=== PATIENT | female | born 1940 | race Caucasian/White ===

== ENCOUNTER → 2016-05-26 | Outpatient (CLI) | payer MEDICARE | LOC: BFHH 11:57 | PROVIDERS: ATTEND Family Medicine | DX: D64.9 Anemia, unspecified (principal) ==

== ENCOUNTER → 2016-06-24 | Outpatient (CLI) | payer MEDICARE | LOC: BFHH 10:17 | PROVIDERS: ATTEND Family Medicine | DX: J44.9 Chronic obstructive pulmonary disease, unspecified (principal); I10 Essential (primary) hypertension; M06.4 Inflammatory polyarthropathy; M35.3 Polymyalgia rheumatica ==

== ENCOUNTER → 2017-05-26 | Outpatient (CLI) | payer MEDICARE | END | disposition home or self-care (01) | LOC: LAB.O 17:15 | PROVIDERS: ATTEND Internal Medicine | DX: M05.79 Rheumatoid arthritis with rheumatoid factor of multiple sites without organ or systems involvement (principal) ==

== ENCOUNTER 2017-07-25 11:30 | Emergency (ER) | payer MEDICARE ==
[2017-07-25 11:50] VITALS: TEMP 97.2
[2017-07-25] MEDS ORDERED: MORPHINE SULFATE INJ 10 MG/ML VIAL IM ONE (12:28)
--- NOTE | 2017-07-25 12:29 | ED.PDOC ---
History of Present Illness - General Chief Complaint: Upper Extremity Injury Stated Complaint: right shouler pain Time Seen by Provider: 07/25/17 12:26 Source: patient Exam Limitations: no limitations - History of Present Illness Occurred: just prior to arrival Severity: moderate Pain Location: upper extremity Method of Injury: fall Improving Factors: immobilization Worsening Factors: movement Loss of Consciousness: no loss of consciousness Associated Symptoms (Fall): denies symptoms Allergies/Adverse Reactions: Allergies NO KNOWN ALLERGY Allergy (Verified 05/11/16 22:33) Home Medications: Ambulatory Orders Citalopram Hydrobromide 20 mg PO BEDTIME 09/25/14 Hydrochlorothiazide 12.5 mg PO DAILY 09/25/14 Lorazepam 0.5 mg PO BID 09/25/14 Montelukast Sodium 10 mg PO BEDTIME 09/25/14 Ferrous Sulfate [Iron] 325 mg PO BID 05/11/16 Linaclotide [Linzess] 90 mcg PO DAILY 05/11/16 Metoclopramide HCl 10 mg PO BEDTIME 05/11/16 Oxybutynin Chloride 5 mg PO BID 05/11/16 Pantoprazole Sodium 40 mg PO BID 05/11/16 Prednisone 1 mg PO DAILY 05/11/16 Tramadol HCl 50 mg PO PRN 05/11/16 Acetaminophen W/ Codeine [Tylenol W/ CODEINE #3] 1 ea PO Q4HR PRN #20 07/25/17 Golimumab [Simponi] 50 mg SC .[id number] 07/25/17 Hydroxychloroquine Sulfate [Hydroxychloroquine Sulfat] 200 mg PO BID 07/25/17 Methotrexate Sodium [Methotrexate] 20 mg PO WKLY 07/25/17 Umeclidinium-Vilanterol [Anoro Ellipta 62.5-25 Mcg/INH] 1 aer IN DAILY 07/25/17 diphenhydrAMINE HCL [Benadryl] 25 mg PO PRN 07/25/17 Review of Systems - Review of Systems Constitutional: States: no symptoms reported EENTM: States: no symptoms reported Respiratory: States: no symptoms reported Cardiology: States: no symptoms reported Gastrointestinal/Abdominal: States: no symptoms reported Genitourinary: States: no symptoms reported Musculoskeletal: States: joint pain, joint swelling. Denies: neck pain Skin: States: no symptoms reported Neurological: States: no symptoms reported. Denies: anxiety, headache, numbness , paresthesia, tingling, tremors, weakness Endocrine: States: no symptoms reported Past Medical History (General) - Patient Medical History Hx Stroke: No Hx Asthma: No Hx of COPD: Yes Hx Congestive Heart Failure: No Hx Hypertension: Yes Hx Thyroid Disease: No Hx Diabetes: No Hx Cancer: Yes - tongue Hx Hepatitis C: No - Vaccination History Hx Tetanus, Diphtheria Vaccination: No Hx Influenza Vaccination: Yes Hx Pneumococcal Vaccination: Yes - Social History Hx Tobacco Use: Yes Hx Alcohol Use: No Hx Substance Use: No Hx Substance Use Treatment: No Hx Depression: No Family Medical History - Family History Mother Family History: No Known Hx Family Cancer: Yes - liver,lung,prostate Physical Exam - Physical Exam General Appearance: Alert, Well Developed, Well Groomed, Well Hydrated, Well Nourished Head Injury: no evidence of injury ENT Exam: hearing grossly normal, no evidence of ENT injury Neck Exam: non-tender, full range of motion, normal alignment, normal inspection Cardiovascular/Respiratory: regular rate, rhythm, no M/R/G, normal peripheral pulses, no JVD, normal breath sounds, no respiratory distress Gastrointestinal/Abdominal: normal bowel sounds, non tender, soft, no organomegaly, no pulsatile mass Back Exam: normal inspection, no vertebral tenderness Extremity Exam: pain with movement, tenderness, other - tenderness to the right shoulder, no pain to the pelvis, chest, abd, skull, neck, lower arm or left arm Progress - Progress Progress: 07/25/17 12:31 07/25/17 11:51 Humerus,Right [RAD] Stat Shoulder,Right 2 or More Views [RAD] Stat 07/25/17 12:07 Chest,1 View [RAD] Stat 07/25/17 13:00 chest xray shows no acute traumatic chest abnormality, right humerus fracture; right shoulder xray shows comminuted right shoulder fracture with some displacement but no dislocation Departure - Departure Clinical Impression: Humeral fracture Qualifiers: Encounter type: initial encounter Humerus Location: proximal Fracture type: closed Fracture morphology: unspecified fracture morphology Laterality: right Qualified Code(s): S42.201A - Unspecified fracture of upper end of right humerus , initial encounter for closed fracture Fall Qualifiers: Encounter type: initial encounter Qualified Code(s): W19.XXXA - Unspecified fall, initial encounter Time of Disposition: 01:05 Disposition: Discharge to Home or Self Care Condition: Good Departure Forms: ED Discharge - Pt. Copy, Patient Portal Self Enrollment Instructions: DI for Arm Pain, DI for Humeral Fracture Diet: resume usual diet Activity: increase activity as tolerated Referrals: Last Orantes MD [Primary Care Provider] - 1-2 Weeks Hermann Springer MD [Active Staff] - 1-5 Days (proximal humerus fracture) Prescriptions: Acetaminophen W/ Codeine [Tylenol W/ CODEINE #3] 1 ea PO Q4HR PRN #20 PRN Reason: Pain Home Medications: Ambulatory Orders Citalopram Hydrobromide 20 mg PO BEDTIME 09/25/14 Hydrochlorothiazide 12.5 mg PO DAILY 09/25/14 Lorazepam 0.5 mg PO BID 09/25/14 Montelukast Sodium 10 mg PO BEDTIME 09/25/14 Ferrous Sulfate [Iron] 325 mg PO BID 05/11/16 Linaclotide [Linzess] 90 mcg PO DAILY 05/11/16 Metoclopramide HCl 10 mg PO BEDTIME 05/11/16 Oxybutynin Chloride 5 mg PO BID 05/11/16 Pantoprazole Sodium 40 mg PO BID 05/11/16 Prednisone 1 mg PO DAILY 05/11/16 Tramadol HCl 50 mg PO PRN 05/11/16 Acetaminophen W/ Codeine [Tylenol W/ CODEINE #3] 1 ea PO Q4HR PRN #20 07/25/17 Golimumab [Simponi] 50 mg SC .[id number] 07/25/17 Hydroxychloroquine Sulfate [Hydroxychloroquine Sulfat] 200 mg PO BID 07/25/17 Methotrexate Sodium [Methotrexate] 20 mg PO WKLY 07/25/17 Umeclidinium-Vilanterol [Anoro Ellipta 62.5-25 Mcg/INH] 1 aer IN DAILY 07/25/17 diphenhydrAMINE HCL [Benadryl] 25 mg PO PRN 07/25/17
--- NOTE | 2017-07-25 12:52 | RAD ---
EXAM DESCRIPTION: Chest,1 View CLINICAL HISTORY: pain after falling COMPARISON: None available TECHNIQUE: AP portable chest FINDINGS: An anterior cervical fusion plate is observed. An orthopedic anchors observed in the right shoulder. There is fracturing of the right proximal humerus. A right-sided acromial spur is observed. Subacromial spur is also observed in the left. Lungs are free of acute infiltrate. The heart is within range of normal. No pleural fluid is seen. IMPRESSION: Fracture of the right proximal humerus is observed. The lungs are clear. Electronically signed by: Shiv Toussaint MD 07/25/2017 12:51 PM CDT
--- NOTE | 2017-07-25 12:52 | RAD ---
EXAM DESCRIPTION: Shoulder,Right 2 or More Views CLINICAL HISTORY: pain after falling COMPARISON: None. IMPRESSION: 2 views of the right shoulder show a comminuted displaced fracture involving the right humeral head with 2 cm medial displacement of the distal fracture fragment/humeral shaft. Surgical tack in the fracture humeral head is noted from probable prior surgery. No glenohumeral joint dislocation is seen. Question postsurgical changes to the right AC joint. Plate and screw fixation of the lower cervical spine is seen. Osseous structures are diffusely osteopenic. Electronically signed by: Dionicio Sam MD 07/25/2017 12:51 PM CDT
[2017-07-25] MEDS ORDERED: NEOMYCIN-BACITRACIN-POLYMYXIN 0.9 GM UD TOP ONE (13:57)
[2017-07-25] MEDS ORDERED: POVIDONE IODINE 10 % 15 ML UD TOP ONE (13:57)
[2017-07-25 14:18] VITALS: BP 128/77; O2SAT 93
== END 2017-07-25 14:19 | disposition home or self-care (01) ==
LOC: ER 11:30
DX: S42.291A Other displaced fracture of upper end of right humerus, initial encounter for closed fracture (principal); J44.9 Chronic obstructive pulmonary disease, unspecified; I10 Essential (primary) hypertension; Z79.899 Other long term (current) drug therapy; W19.XXXA Unspecified fall, initial encounter; Y92.9 Unspecified place or not applicable
CPT/HCPCS: 71045; 73030; J2270

== ENCOUNTER → 2017-07-31 | Outpatient (CLI) | payer MEDICARE ==
--- NOTE | 2017-07-31 16:24 | RAD ---
EXAM DESCRIPTION: Shoulder,Right 2 or More Views CLINICAL HISTORY: PAIN COMPARISON: None Available. TECHNIQUE: 3 views of the right shoulder. FINDINGS: Transversely oriented fracture of the surgical neck of the proximal humerus is seen. There is mild to moderate comminution. The greater tuberosity is fractured and may be a separate fragment. On the previous study, there was approximately 9 mm of medial displacement of the major distal fracture fragment. On the present study there is approximately 1.4 cm of medial displacement. The degree of impaction may be increased slightly. The medial aspect of the humeral head appears to articulate with the glenoid fossa. The distal fracture fragment which includes the shaft of the humerus is closely adjacent to the inferior margin of the glenoid. Intact acromioclavicular joint. No scapular fracture. IMPRESSION: Proximal right humeral fracture with increased degree of displacement at the fracture site. See above. Electronically signed by: Munir Martinez MD 07/31/2017 4:23 PM CDT
== END ==
LOC: RAD 09:17
PROVIDERS: ATTEND Orthopaedic Surgery
DX: S42.291A Other displaced fracture of upper end of right humerus, initial encounter for closed fracture (principal)

== ENCOUNTER → 2017-08-07 | Outpatient (CLI) | payer MEDICARE | LOC: GMAJ 10:48 | PROVIDERS: ATTEND Physician Assistant | DX: Z01.810 Encounter for preprocedural cardiovascular examination (principal) ==

== ENCOUNTER → 2017-08-24 | Outpatient (CLI) | payer MEDICARE ==
--- NOTE | 2017-08-24 15:33 | RAD ---
EXAM DESCRIPTION: Shoulder,Right 2 or More Views CLINICAL HISTORY: PAIN IN RIGHT SHOULDER COMPARISON: None Available. TECHNIQUE: 3 views of the right shoulder. FINDINGS: There is adequate internal and external rotation. Transscapular Y view shows normal prosthetic component alignment. Previous study showed proximal humeral fracture and the present exam shows reverse right shoulder arthroplasty with expected alignment of the glenoid and humeral components. Some of the fracture fragments of the proximal humerus are still seen superolaterally. A wire surrounds the proximal humerus and humeral stem of the humeral component of the prosthesis. Plate and screws are seen in the C-spine. Wide right AC joint. Inferior acromial spur appears less prominent. IMPRESSION: Reverse right shoulder arthroplasty with expected alignment. Electronically signed by: Munir Martinez MD 08/24/2017 3:31 PM CDT
== END ==
LOC: RAD 09:56
PROVIDERS: ATTEND Orthopaedic Surgery
DX: M25.511 Pain in right shoulder (principal); Z96.611 Presence of right artificial shoulder joint

== ENCOUNTER → 2017-10-18 | Outpatient (CLI) | payer MEDICARE ==
--- NOTE | 2017-10-18 12:45 | CT ---
EXAM DESCRIPTION: Abdomen/Pelvis w/wo Contrast CLINICAL HISTORY: 77 years Female, ABD PAIN COMPARISON: None available. TECHNIQUE: Contiguous 3 mm axial images were obtained from the lung bases to the level of the proximal femora before and after the administration of intravenous and oral contrast. Sagittal and coronal reconstructions were reviewed. FINDINGS: THORAX: The imaged lower thorax demonstrates no gross abnormality. LIVER: The liver demonstrates a nodular contour, consistent with cirrhosis. No intrahepatic ductal dilatation or focal masses. GALLBLADDER: Surgically absent PANCREAS: Diffuse atrophy of the pancreas is noted. SPLEEN: Normal ADRENAL GLANDS: Normal with no nodules or masses. KIDNEYS: Both kidneys enhance symmetrically with no hydronephrosis or nephrolithiasis or perinephric fluid collections. No focal masses are identified. The visualized ureters appear grossly unremarkable. STOMACH: Moderate sized hiatal hernia is noted. The intra-abdominal portion of the stomach is not well-distended limiting evaluation. SMALL BOWEL: The small bowel loops demonstrate variable degrees of distention with no abnormal dilatation or other signs to suggest bowel obstruction. LARGE BOWEL: Large amount of fecal material throughout the colon suggesting constipation. No evidence of free intraperitoneal air or fluid. RETROPERITONEUM: The abdominal aorta is nonaneurysmal with moderate atherosclerosis. The inferior vena cava is normal in size and caliber. No abnormally enlarged retroperitoneal lymph nodes are identified. URINARY BLADDER:The urinary bladder is well-distended with no gross abnormality. The uterus and ovaries are surgically absent. ADDITIONAL FINDINGS: None. BONES: Mild degenerative changes are identified in the visualized bones.No evidence of osteophytic or osteoblastic lesions. IMPRESSION: 1. Cirrhotic liver. 2. Constipation. 3. Moderate-sized hiatal hernia. This exam was performed according to our departmental dose-optimization program, which includes automated exposure control, adjustment of the mA and/or kV according to patient size and/or use of iterative reconstruction technique. Electronically signed by: Gita Olivier MD 10/18/2017 12:43 PM CDT
== END ==
LOC: LAB.O 07:57
PROVIDERS: ATTEND Family Medicine
DX: R10.84 Generalized abdominal pain (principal); K74.60 Unspecified cirrhosis of liver; K59.00 Constipation, unspecified; K44.9 Diaphragmatic hernia without obstruction or gangrene; I10 Essential (primary) hypertension

== ENCOUNTER → 2017-11-03 | Outpatient (CLI) | payer MEDICARE ==
--- NOTE | 2017-11-03 18:09 | RAD ---
EXAM DESCRIPTION: Shoulder,Right 2 or More Views CLINICAL HISTORY: TOTAL SHOULDER REPLACEMENT COMPARISON: Previous study August 24, 2017 TECHNIQUE: Four views of the right shoulder. FINDINGS: Reverse right shoulder arthroplasty is seen. Previous fragmentation along the humeral aspect appears to if healed. No dislocation. Degenerative changes in the spine. No periprosthetic lucency to suggest osteolysis. IMPRESSION: Reverse right shoulder arthroplasty. No change in alignment since previous study. Electronically signed by: Munir Martinez MD 11/03/2017 6:08 PM CDT
== END ==
LOC: RAD 08:46
PROVIDERS: ATTEND Orthopaedic Surgery
DX: Z96.611 Presence of right artificial shoulder joint (principal)

== ENCOUNTER → 2017-11-07 | Outpatient (CLI) | payer MEDICARE | LOC: LAB.O 16:09 | DX: R74.8 Abnormal levels of other serum enzymes (principal) ==

== ENCOUNTER → 2018-01-11 | Outpatient (CLI) | payer MEDICARE | LOC: BFHH 09:01 | PROVIDERS: ATTEND Family Medicine | DX: I10 Essential (primary) hypertension (principal); E78.5 Hyperlipidemia, unspecified; K74.60 Unspecified cirrhosis of liver ==

== ENCOUNTER → 2018-07-24 | Outpatient (CLI) | payer MEDICARE | LOC: GMAM 11:15 | PROVIDERS: ATTEND Family Medicine | DX: E53.8 Deficiency of other specified B group vitamins (principal) ==

== ENCOUNTER → 2019-01-02 | Outpatient (CLI) | payer MEDICARE | LOC: BFHH 13:43 | PROVIDERS: ATTEND Family Medicine | DX: N39.0 Urinary tract infection, site not specified (principal) ==

== ENCOUNTER 2019-01-07 16:21 | Emergency (ER) | payer MEDICARE ==
--- NOTE | 2019-01-07 13:07 | RAD ---
PROVIDED CLINICAL HISTORY/REASON FOR EXAM: PAIN IN RIGHT AND LEFT HIP Findings: Number of images: 5 Location: Hips/pelvis Surgical clips in left pelvis. Pelvic phleboliths. Osteopenia. Bilateral sacroiliac degenerative change. Lower lumbar spondylosis. No acute fracture or dislocation. Moderate right and mild left hip osteoarthritis. IMPRESSION: Chronic degenerative changes about the pelvis. No acute fracture or dislocation. Electronically signed by: Rafael Fernandes MD 01/07/2019 1:05 PM CDT
[2019-01-07] MEDS ORDERED: ONDANSETRON INJ 4 MG/2 ML VIAL IV ONE (16:59)
[2019-01-07] MEDS ORDERED: MORPHINE SULFATE INJ 10 MG/ML VIAL IV ONE (16:59)
--- NOTE | 2019-01-07 17:00 | ED.PDOC ---
History of Present Illness - General Chief Complaint: General Stated Complaint: Restless legs Time Seen by Provider: 01/07/19 16:38 Source: patient Exam Limitations: no limitations - History of Present Illness Initial Comments: SHE JUST STARTED WITH MOVEMENTS TO THE LOWER EXTREMITIES AND TO THE UPPER EXTREMITIES. SHE WAS RECENTLY AT DR. KWAN'S OFFICE FOR CHRONIC PAIN TO THE LEGS AND IS SCHEDULED FOR A BONE SCAN TOMORROW MORNING. SHE DENIES ANY FEVER, OR DIARRHEA. SHE HAS RA ON HUMIRA AND ALSO VOICES THAT WAS RECENTLY DIAGNOSED WITH A UTI-ON CIPRO; TODAY IS HER LAST DAY OF ANTIBIOTICS. SHE VOICES THAT SHE MOVES HER LEGS BECAUSE THEY HURT AND THE TRAMADOL IS NOT HELPING HER ANYMORE. WHILE THE INTERROGATORY AND EXAM SHE HAD NO MOVEMENTS OF THE ARMS. Timing/Duration: 1-3 hours Improving Factors: nothing Worsening Factors: nothing Associated Symptoms: denies symptoms Allergies/Adverse Reactions: Allergies NO KNOWN ALLERGY Allergy (Verified 01/07/19 16:45) Home Medications: Ambulatory Orders Citalopram Hydrobromide 20 mg PO BEDTIME 09/25/14 Hydrochlorothiazide 12.5 mg PO DAILY 09/25/14 Lorazepam 0.5 mg PO BID 09/25/14 Montelukast Sodium 10 mg PO BEDTIME 09/25/14 Ferrous Sulfate [Iron] 325 mg PO BID 05/11/16 Linaclotide [Linzess] 90 mcg PO DAILY 05/11/16 Metoclopramide HCl [Metoclopramide Hydrochlor] 10 mg PO BEDTIME 05/11/16 Oxybutynin Chloride 5 mg PO BID 05/11/16 Pantoprazole Sodium 40 mg PO BID 05/11/16 Prednisone 1 mg PO DAILY 05/11/16 Tramadol HCl 50 mg PO PRN 05/11/16 Acetaminophen W/ Codeine [Tylenol W/ CODEINE #3] 1 ea PO Q4HR PRN #20 07/25/17 Golimumab [Simponi] 50 mg SC .[id number] 07/25/17 Hydroxychloroquine Sulfate [Hydroxychloroquine Sulfat] 200 mg PO BID 07/25/17 Methotrexate Sodium [Methotrexate] 20 mg PO WKLY 07/25/17 Umeclidinium-Vilanterol [Anoro Ellipta 62.5-25 Mcg/INH] 1 aer IN DAILY 07/25/17 diphenhydrAMINE HCL [Benadryl] 25 mg PO PRN 07/25/17 Nitrofurantoin Monohydrate Mac [Macrobid] 100 mg PO BID #7 capsule 01/07/19 Review of Systems - Review of Systems Constitutional: States: no symptoms reported EENTM: States: no symptoms reported Respiratory: States: no symptoms reported Cardiology: States: no symptoms reported Gastrointestinal/Abdominal: States: no symptoms reported Musculoskeletal: States: joint swelling, muscle pain, other - INVOLUNTARY MOVEMENTS OF THE LOWER LEGS Skin: States: no symptoms reported Neurological: States: other - INVOLUNTARY MOVEMENTS OF THE FEET. Endocrine: States: no symptoms reported Hematologic/Lymphatic: States: no symptoms reported Past Medical History (General) - Patient Medical History Hx Stroke: No Hx Asthma: No Hx of COPD: Yes Hx Congestive Heart Failure: No Hx Hypertension: Yes Hx Thyroid Disease: No Hx Diabetes: No Hx Gastroesophageal Reflux: Yes Hx Cancer: Yes - tongue Hx Hepatitis C: No - Vaccination History Hx Tetanus, Diphtheria Vaccination: No Hx Influenza Vaccination: Yes - 2017 Hx Pneumococcal Vaccination: Yes - 2015 - Social History Hx Tobacco Use: Yes - Quit approx 40 yrs ago Hx Alcohol Use: No Hx Substance Use: No Hx Substance Use Treatment: No Hx Depression: No Family Medical History - Family History Mother Family History: No Known Hx Family Cancer: Yes - liver,lung,prostate Progress - Results/Orders Results/Orders: 01/07/19 16:55 Urine Culture Stat 01/07/19 18:33 Sodium Chloride 0.9% 1000ML [Ns 1000 ml] 1,000 ml IVS ONCE 01/07/19 19:20 [id number] SODIUM [Rocephin] 1 gm Sodium Chl 0.9% 50Ml Min-Bag+ [NS 50ml MINI-BAG+] 50 ml IVPB ONCE Laboratory Results WBC 9.4 K/mm3 (4.8-10.8) 01/07/19 17:05 RBC 3.94 M/mm3 (4.20-5.40) L 01/07/19 17:05 Hgb 11.3 gm/dL (12.0-16.0) L 01/07/19 17:05 Hct 32.7 % (36.0-47.0) L 01/07/19 17:05 MCV 83.0 fl (81.0-99.0) 01/07/19 17:05 MCH 28.7 pg (27.0-31.0) 01/07/19 17:05 MCHC 34.6 g/dL (33.0-37.0) 01/07/19 17:05 RDW 14.7 % (11.5-14.5) H 01/07/19 17:05 Plt Count 357 K/mm3 (130-400) 01/07/19 17:05 MPV 7.3 fl (7.40-10.4) L 01/07/19 17:05 Absolute Neuts (auto) 5.10 K/uL (1.8-6.8) 01/07/19 17:05 Absolute Lymphs (auto) 2.50 K/uL (1.0-3.4) 01/07/19 17:05 Absolute Monos (auto) 1.40 K/uL (0.2-0.8) H 01/07/19 17:05 Absolute Eos (auto) 0.20 K/uL (0.0-0.4) 01/07/19 17:05 Absolute Basos (auto) 0.20 K/uL (0.0-0.1) H 01/07/19 17:05 Neutrophils % 54.4 % (42.0-78.0) 01/07/19 17:05 Lymphocytes % 26.4 % (20.0-50.0) 01/07/19 17:05 Monocytes % 15.0 % (2.0-9.0) H 01/07/19 17:05 Eosinophils % 1.9 % (1.0-5.0) 01/07/19 17:05 Basophils % 2.3 % (0.0-2.0) H 01/07/19 17:05 Sodium 125 mmol/L (135-145) L 01/07/19 17:05 Potassium 3.3 mmol/L (3.6-5.0) L 01/07/19 17:05 Chloride 91 mmol/L (101-111) L 01/07/19 17:05 Carbon Dioxide 23 mmol/L (21-31) 01/07/19 17:05 Anion Gap 14.3 (12-18) 01/07/19 17:05 BUN 9 mg/dL (7-18) 01/07/19 17:05 Creatinine 0.86 mg/dL (0.6-1.3) 01/07/19 17:05 BUN/Creatinine Ratio 10.5 (10-20) 01/07/19 17:05 Random Glucose 95 mg/dL (70-105) 01/07/19 17:05 Serum Osmolality 250.0 mOsm/L (275-295) L* 01/07/19 17:05 Calcium 8.8 mg/dL (8.4-10.2) 01/07/19 17:05 Total Bilirubin 0.7 mg/dL (0.2-1.0) 01/07/19 17:05 AST 30 IU/L (10-42) 01/07/19 17:05 ALT 16 IU/L (10-60) 01/07/19 17:05 Alkaline Phosphatase 69 IU/L (42-121) 01/07/19 17:05 Serum Total Protein 6.6 gm/dL (6.4-8.2) 01/07/19 17:05 Albumin 3.5 g/dl (3.2-5.5) 01/07/19 17:05 Globulin 3.1 gm/dL (2.3-3.5) 01/07/19 17:05 Albumin/Globulin Ratio 1.1 (1.1-1.9) 01/07/19 17:05 Urine Color Yellow (Yellow) 01/07/19 16:55 Urine Appearance Cloudy (Clear) 01/07/19 16:55 Urine pH 6.5 (4.5-7.8) 01/07/19 16:55 Ur Specific [place] 1.020 (1.005-1.030) 01/07/19 16:55 Urine Protein 30 mg/dL 01/07/19 16:55 Urine Glucose (UA) Negative mg/dL (Negative) 01/07/19 16:55 Urine Ketones Negative mg/dL (NEGATIVE) 01/07/19 16:55 Urine Blood Trace-intact (Negative) H 01/07/19 16:55 Urine Nitrite Negative 01/07/19 16:55 Urine Bilirubin Negative (NEGATIVE) 01/07/19 16:55 Urine Urobilinogen 0.2 mg/dL (0.2-1.0) 01/07/19 16:55 Ur Leukocyte Esterase Moderate (Negative) H 01/07/19 16:55 Urine RBC 5-10 /hpf H 01/07/19 16:55 Urine WBC >50 /hpf H 01/07/19 16:55 Ur Epithelial Cells 3-5 /hpf 01/07/19 16:55 Urine Bacteria 1+ 01/07/19 16:55 Departure - Departure Clinical Impression: Rheumatoid arthritis Qualifiers: Rheumatoid arthritis location: foot Rheumatoid factor presence: with rheumatoid factor Laterality: bilateral Qualified Code(s): M05.771 - Rheumatoid arthritis with rheumatoid factor of right ankle and foot without organ or systems involvement; M05.772 - Rheumatoid arthritis with rheumatoid factor of left ankle and foot without organ or systems involvement Chronic leg pain Qualifiers: Laterality: bilateral Qualified Code(s): M79.604 - Pain in right leg; M79.605 - Pain in left leg; G89.29 - Other chronic pain Urinary tract infection Qualifiers: Urinary tract infection type: acute cystitis Hematuria presence: without hematuria Qualified Code(s): N30.00 - Acute cystitis without hematuria Time of Disposition: 19:31 Disposition: Discharge to Home or Self Care Condition: Good Departure Forms: ED Discharge - Pt. Copy, Patient Portal Self Enrollment Referrals: Last Kwan MD [Primary Care Provider] - 1-2 Weeks Prescriptions: Nitrofurantoin Monohydrate Mac [Macrobid] 100 mg PO BID #7 capsule Home Medications: Ambulatory Orders Citalopram Hydrobromide 20 mg PO BEDTIME 09/25/14 Hydrochlorothiazide 12.5 mg PO DAILY 09/25/14 Lorazepam 0.5 mg PO BID 09/25/14 Montelukast Sodium 10 mg PO BEDTIME 09/25/14 Ferrous Sulfate [Iron] 325 mg PO BID 05/11/16 Linaclotide [Linzess] 90 mcg PO DAILY 05/11/16 Metoclopramide HCl [Metoclopramide Hydrochlor] 10 mg PO BEDTIME 05/11/16 Oxybutynin Chloride 5 mg PO BID 05/11/16 Pantoprazole Sodium 40 mg PO BID 05/11/16 Prednisone 1 mg PO DAILY 05/11/16 Tramadol HCl 50 mg PO PRN 05/11/16 Acetaminophen W/ Codeine [Tylenol W/ CODEINE #3] 1 ea PO Q4HR PRN #20 07/25/17 Golimumab [Simponi] 50 mg SC .[id number] 07/25/17 Hydroxychloroquine Sulfate [Hydroxychloroquine Sulfat] 200 mg PO BID 07/25/17 Methotrexate Sodium [Methotrexate] 20 mg PO WKLY 07/25/17 Umeclidinium-Vilanterol [Anoro Ellipta 62.5-25 Mcg/INH] 1 aer IN DAILY 07/25/17 diphenhydrAMINE HCL [Benadryl] 25 mg PO PRN 07/25/17 Nitrofurantoin Monohydrate Mac [Macrobid] 100 mg PO BID #7 capsule 01/07/19
[2019-01-07] MEDS ORDERED: HYDROmorphone HCL INJ 2 MG/ML VIAL IV ONE (18:11)
[2019-01-07] MEDS ORDERED: SODIUM CHLORIDE 0.9% 1000ML 1,000 ML IVS ONE (18:33)
[2019-01-07] MEDS ORDERED: cefTRIAXone SODIUM 1 GM in SODIUM CHL 0.9% 50ML MIN-BAG+ 50 ML IVPB ONE (19:20)
[2019-01-07] MEDS ORDERED: cefTRIAXone SODIUM 1 GM VIAL ONE (19:35)
[2019-01-07] MEDS ORDERED: SODIUM CHL 0.9% 50ML MIN-BAG+ 50 ML IVPB ONE (19:35)
[2019-01-07] MEDS ORDERED: HYDROCOD/APAP 10/325 (ER DISP) # 3 tablets ONE (20:16)
[2019-01-07] MEDS ORDERED: HYDROCOD/APAP 10/325 (ER DISP) # 3 tablets PO ONE (20:16)
[2019-01-07 20:27] VITALS: BP 128/78; TEMP 97.9; O2SAT 99
== END 2019-01-07 20:28 | disposition home or self-care (01) ==
LOC: ER 16:21
DX: M79.604 Pain in right leg (principal); M79.605 Pain in left leg; G89.29 Other chronic pain; M05.771 Rheumatoid arthritis with rheumatoid factor of right ankle and foot without organ or systems involvement; M05.772 Rheumatoid arthritis with rheumatoid factor of left ankle and foot without organ or systems involvement; N30.00 Acute cystitis without hematuria; J44.9 Chronic obstructive pulmonary disease, unspecified; I10 Essential (primary) hypertension; K21.9 Gastro-esophageal reflux disease without esophagitis; Z85.810 Personal history of malignant neoplasm of tongue; Z79.899 Other long term (current) drug therapy
CPT/HCPCS: 36415; 72170; 73521; 80053; 81001; 85025; 87086; J0696; J1170; J2270; J2405; J7030; J7050

== ENCOUNTER → 2019-01-08 | Outpatient (CLI) | payer MEDICARE ==
--- NOTE | 2019-01-08 20:17 | NM ---
EXAM DESCRIPTION: Bone Scan, Whole Body: Nuclear Medicine CLINICAL HISTORY: 78 years Female CHRONIC PAIN COMPARISON: Multiple orthopedic images since July 2017. CT scan abdomen and pelvis October 2017. Portable chest x-ray July 2017. Right shoulder radiographs October 2017. TECHNIQUE: Patient injected with 25.1 mCi of technetium 99M MDP IV. Delayed gamma camera images from various planes were obtained 3 hr after injection. FINDINGS: Significant activity is noted in the right knee region especially medially. This is consistent with advanced osteoarthritis more medially than laterally in the right knee on prior radiographs. Activity in the left knee is consistent with tricompartmental osteoarthritis on prior radiographs. Activity in the bilateral ankles more left than right more focal in the left distal tibia as well as activity in the bilateral great toes consistent with degenerative disease. Activity in the left L5-S1 region in the right L4-L5 region of the lumbar spine most likely related to degenerative disease. This can be seen on CT scans of the abdomen and pelvis. Activity in the bilateral sternoclavicular joints more left than right is consistent with appearance of these joints on chest radiograph in July 2017. This x-ray also shows in displaced humeral head and neck fracture on the right. Activity and photopenic region in the right shoulder consistent with right total shoulder arthroplasty, seen on right shoulder radiographs October 2017. Activity in the right maxillary region is most likely related to dental hardware. Bilaterally symmetric activity in the mid humeri, probably related to deltoid muscle insertions. Activity in the radial aspect of the left wrist and hand, consistent with arthrosis.. IMPRESSION: Multiple regions of abnormal uptake or activity of radionuclide bone scanning agent consistent with findings on radiographs. Most significant activity is in the distal left tibia, right knee, bilateral sternoclavicular joints, and the left radial wrist and thumb base. No specific abnormal activity related to right total shoulder arthroplasty. Electronically signed by: Jerzy Jimenez MD 01/08/2019 8:15 PM CDT
== END ==
LOC: NM 07:34
PROVIDERS: ATTEND Family Medicine
DX: G89.29 Other chronic pain (principal)

== ENCOUNTER → 2019-01-09 | Outpatient (CLI) | payer MEDICARE | LOC: GMAM 14:45 | PROVIDERS: ATTEND Family Medicine | DX: E87.1 Hypo-osmolality and hyponatremia (principal) ==

== ENCOUNTER → 2019-01-25 | Outpatient (CLI) | payer MEDICARE | LOC: BFHH 12:55 | PROVIDERS: ATTEND Family Medicine | DX: R30.0 Dysuria (principal) ==

== ENCOUNTER → 2019-02-12 | Outpatient (CLI) | payer MEDICARE | LOC: LAB.O 08:05 | PROVIDERS: ATTEND Orthopaedic Surgery | DX: Z01.818 Encounter for other preprocedural examination (principal) ==

== ENCOUNTER 2019-03-06 05:23 | Day surgery (SDC) | payer MEDICARE ==
--- NOTE | 2019-02-22 13:45 | HP ---
CHIEF COMPLAINT: Right knee pain. HISTORY OF PRESENT ILLNESS: Ms. Kunz is an 78-year-old female with a history of right knee pain that is constant. She says the pain is up to an 8 and has been going on for at least 4 years. It has been chronic and now it is so frequent that she cannot identify any particular aggravating factors except for weightbearing. She says it hurts on a continual basis, so even walking does cause some worsening, but does not change the quality of the pain. It is sharp and aching as well. Associated symptoms including catching and locking. There have been no alleviating factors. She has had no previous surgery, but has had injections and preoperative physical therapy. Unfortunately, she has failed to get relief. Therefore, she has requested operative intervention. After discussing the risks, benefits and alternatives to operative intervention, she has given informed consent. PAST SURGICAL HISTORY: 1. Shoulder replacement. MEDICATIONS: 1. Citalopram. 2. Hydrochlorothiazide. 3. Folate. 4. Linzess. 5. Anoro. 6. Oxybutynin. 7. Tramadol. 8. Pantoprazole. 9. Plaquenil 10. Montelukast. 11. Benadryl. 12. Ropinirole. 13. Gabapentin. 14. Albuterol. 15. Fosamax. 16. Humira. 17. CBD oil. 18. Tizanidine. PAIN CONTRACT: She does get tramadol from her primary care physician. ALLERGIES: NO KNOWN DRUG ALLERGIES. CODE STATUS: Full code. IMMUNIZATIONS: Up to date. SOCIAL HISTORY: The patient does not drink, smoke or use any illicit drugs. FAMILY HISTORY: None pertinent to today's complaint. REVIEW OF SYSTEMS: Negative except as indicated in the History of Present Illness. HEENT: The patient reports no symptoms. RESPIRATORY: The patient reports no symptoms. CARDIOVASCULAR: The patient reports no symptoms. GASTROINTESTINAL: The patient reports no symptoms GENITOURINARY: The patient reports no symptoms. MUSCULOSKELETAL: Negative except as noted in History of Present Illness. SKIN: The patient reports no symptoms. NEUROLOGIC: The patient reports no symptoms. PHYSICAL EXAMINATION: VITAL SIGNS: Blood pressure 131/79. Pulse 85. Height 5'3". Weight 180 pounds. MENTAL STATUS: The patient is awake, alert, and is able to give a good history and participate in the physical. The patient is oriented to person, place and time. SKIN: Normal tone and turgor. HEENT: Normocephalic, atraumatic. Pupils equal, round and reactive. Mucosal membranes are moist. NECK: Normal range of motion. No thyromegaly, no lymphadenopathy. CHEST: Normal respiratory excursion. CARDIAC: Regular rate and rhythm. No murmurs, rubs or gallops. MUSCULOSKELETAL: The bilateral upper extremities show no significant pain with range of motion. She has full manager creative services strength. She has some slight decreased abduction and forward flexion in the left relative to the right secondary to previous surgical intervention. There is no malalignment or deformity. There is no swelling. There is no significant crepitus with range of motion. The left lower extremity shows no significant pain with range of motion. She has intact sensation and it is warm and well perfused. She has no malalignment and no deformity. She has negative anterior and negative posterior drawer. The right lower extremity shows full range of motion of the hip. Range of motion of the knee is from full extension to about 115 degrees right now. She has pain throughout her range of motion and no crepitus. She has no varus or valgus laxity. She has no deformity or malalignment. She has negative anterior and negative posterior drawer. She has a mild effusion. RADIOLOGY: My interpretation of the x-rays shows severe arthritis. ASSESSMENT: 1. Arthritis. PLAN: The plan at this point is for total knee arthroplasty. We have discussed the risks, benefits, and alternatives to that and the patient has given informed consent. [facility][id number] [facility]
[2019-03-06] MEDS ORDERED: SODIUM CHL 0.9% 100ML MINI-BAG 100 ML IVPB ONE (05:49)
[2019-03-06] MEDS ORDERED: TRANEXAMIC ACID 1,000 MG/10 ML VIAL ONE ×2 (05:50→05:51)
[2019-03-06] MEDS ORDERED: LACTATED RINGERS 1,000 ML ONE (05:50)
[2019-03-06] MEDS ORDERED: ceFAZolin SODIUM 1 GM VIAL ONE ×3 (05:50→06:29)
[2019-03-06] MEDS ORDERED: VANCOMYCIN HCL INJ 1,000 MG VIAL IVPB ONE ×2 (05:50→06:25)
[2019-03-06] MEDS ORDERED: SODIUM CHLORIDE 0.9% 250ML 250 ML ONE (05:51)
[2019-03-06] MEDS ORDERED: SODIUM CHLORIDE 0.9% 100ML 100 ML IVPB ONE (05:51)
[2019-03-06] MEDS ORDERED: BUPIVACAINE 0.5% 30 ML VIAL INJ ONE (06:25)
[2019-03-06] MEDS ORDERED: BUPIVACAINE LIPOSOME 13.3 MG/ML VIAL INJ ONE (06:26)
[2019-03-06] MEDS ORDERED: MIDAZOLAM INJ 5 MG/5 ML VIAL ONE (06:36)
[2019-03-06] MEDS ORDERED: HYDROmorphone HCL INJ 2 MG/ML VIAL ONE (06:36)
[2019-03-06] MEDS ORDERED: cefTRIAXone SODIUM 1 GM VIAL ONE (06:42)
[2019-03-06] MEDS ORDERED: LIDOCAINE 1% 2 ML VIAL INJ ONE (06:43)
[2019-03-06 11:33] VITALS: BP 157/80; TEMP 98.9; O2SAT 91
== END 2019-03-06 07:00 | disposition home or self-care (01) ==
LOC: AMB 05:23
PROVIDERS: ATTEND Orthopaedic Surgery
DX: M17.11 Unilateral primary osteoarthritis, right knee (principal); Z96.619 Presence of unspecified artificial shoulder joint; Z53.9 Procedure and treatment not carried out, unspecified reason; Z79.899 Other long term (current) drug therapy
CPT/HCPCS: 36415; 80307; 86850; 86900; 86901; J0690; J0696; J3370; J3490; J7050; J7120

== ENCOUNTER 2019-03-13 05:37 | Inpatient (IN) | payer MEDICARE ==
[2019-03-13] MEDS ORDERED: VANCOMYCIN HCL INJ 1,000 MG VIAL IVPB ONE ×4 (06:05→19:45)
[2019-03-13] MEDS ORDERED: LACTATED RINGERS 1,000 ML ONE (06:05)
[2019-03-13] MEDS ORDERED: SODIUM CHL 0.9% 100ML MINI-BAG 100 ML IVPB ONE (06:05)
[2019-03-13] MEDS ORDERED: TRANEXAMIC ACID 1,000 MG/10 ML VIAL ONE ×2 (06:05→06:06)
[2019-03-13] MEDS ORDERED: SODIUM CHLORIDE 0.9% 100ML 100 ML IVPB ONE (06:06)
[2019-03-13] MEDS ORDERED: SODIUM CHLORIDE 0.9% 250ML 250 ML ONE ×3 (06:06→19:43)
[2019-03-13] MEDS ORDERED: ceFAZolin SODIUM 1 GM VIAL ONE ×2 (06:06→06:50)
[2019-03-13] MEDS ORDERED: SUGAMMADEX SODIUM 200 MG/2 ML VIAL IV ONE (06:46)
[2019-03-13] MEDS ORDERED: HYDROmorphone HCL INJ 2 MG/ML VIAL ONE (06:47)
[2019-03-13] MEDS ORDERED: fentaNYL CITRATE INJ 50 MCG/ML AMP ONE (06:47)
[2019-03-13] MEDS ORDERED: ROCURONIUM BROMIDE 10 MG/ML VIAL ONE (06:47)
[2019-03-13] MEDS ORDERED: BUPIVACAINE 0.5% 30 ML VIAL INJ ONE ×2 (06:50→07:04)
[2019-03-13] MEDS ORDERED: BUPIVACAINE LIPOSOME 13.3 MG/ML VIAL INJ ONE (06:50)
[2019-03-13] MEDS ORDERED: MAGNESIUM HYDROXIDE 30 ML UD PO PRN (09:26)
[2019-03-13] MEDS ORDERED: TRANEXAMIC ACID INJ 1,000 MG in SODIUM CHLORIDE 0.9% 100ML 100 ML IVPB ONE (09:26)
[2019-03-13] MEDS ORDERED: ZOLPIDEM TARTRATE 5 MG TAB PO PRN (09:26)
[2019-03-13] MEDS ORDERED: NALOXONE HCL INJ 0.4 MG/ML VIAL IV PRN (09:26)
[2019-03-13] MEDS ORDERED: DEX 5% W/NACL 0.45% 1000ML 1,000 ML IVS PRN (09:26)
[2019-03-13] MEDS ORDERED: MORPHINE SULFATE INJ 10 MG/ML VIAL IV PRN (09:26)
[2019-03-13] MEDS ORDERED: TEMAZEPAM 15 MG CAP PO PRN (09:26)
[2019-03-13] MEDS ORDERED: ACETAMINOPHEN 325 MG TAB PO PRN (09:26)
[2019-03-13] MEDS ORDERED: CYCLOBENZAPRINE HCL 10 MG TAB PO PRN (09:26)
[2019-03-13] MEDS ORDERED: SODIUM CHLORIDE 0.9% (FLUSH) 10 ML SYG IV PRN (09:26)
[2019-03-13] MEDS ORDERED: PROMETHAZINE HCL INJ 12.5 MG in SODIUM CHLORIDE 0.9% 50ML 50 ML IVPB PRN (09:26)
[2019-03-13] MEDS ORDERED: PROMETHAZINE HCL INJ 25 MG in SODIUM CHLORIDE 0.9% 50ML 50 ML IVPB PRN (09:26)
[2019-03-13] MEDS ORDERED: HYDROcodone 5MG/APAP 325MG 1 EA TAB PO PRN (09:26)
[2019-03-13] MEDS ORDERED: BENZOCAINE-MENTH LOZ (CEPACOL) 1 EA LOZ MT PRN (09:26)
[2019-03-13] MEDS ORDERED: ACETAMINOPHEN 500 MG TAB PO PRN (09:26)
[2019-03-13] MEDS ORDERED: ONDANSETRON INJ 4 MG/2 ML VIAL IV PRN (09:26)
[2019-03-13] MEDS ORDERED: MORPHINE SULFATE INJ 10 MG/ML VIAL IM PRN (09:26)
[2019-03-13] MEDS ORDERED: ALUMINUM & MAGNESIUM HYDROXIDE 30 ML UD PO PRN (09:26)
[2019-03-13] MEDS ORDERED: BISACODYL SUPPOSITORY 10 MG PR PRN (09:26)
[2019-03-13] MEDS ORDERED: MORPHINE PCA 1 MG/ML 100 ML BAG IVPB SCH (09:30)
[2019-03-13] MEDS ORDERED: LACTATED RINGERS 1,000 ML IVS ONE (09:56)
[2019-03-13] MEDS ORDERED: PROPOFOL 200 MG/20 ML VIAL IV ONE (10:00)
[2019-03-13] MEDS ORDERED: ONDANSETRON INJ 4 MG/2 ML VIAL IV ONE (10:00)
[2019-03-13] MEDS ORDERED: LIDOCAINE 1% 10 ML VIAL INJ ONE (10:00)
[2019-03-13] MEDS ORDERED: MORPHINE PCA 1 MG/ML 100 ML BAG IVPB ONE ×2 (10:10→10:20)
[2019-03-13] MEDS ORDERED: MORPHINE SULFATE INJ 10 MG/ML VIAL IV ONE (10:30)
[2019-03-13] MEDS ORDERED: LEVALBUTEROL NEBS 1.25 MG/3 ML VIAL NEB ONE ×2 (10:41→10:45)
--- NOTE | 2019-03-13 11:17 | RAD ---
EXAM DESCRIPTION: Knee,Right 1 or 2 Views CLINICAL HISTORY: TKA COMPARISON: 03 Oct 2018 TECHNIQUE: 2 views right FINDINGS: A right total knee arthroplasty is observed in place. Positioning is near-anatomic. Postoperative air is observed anteriorly. IMPRESSION: New right total knee arthroplasty. Electronically signed by: Shiv Toussaint MD 03/13/2019 11:16 AM CDT
[2019-03-13] MEDS: tiZANidine 4 MG TAB PO SCH ×2 (15:09→20:10)
[2019-03-13] MEDS: IV SET AND CAP CHANGE INJ INJ SCH (15:25)
--- NOTE | 2019-03-13 15:42 | CONS ---
DATE OF CONSULTATION: 03/13/19 SUPERVISING PHYSICIAN: Vinayak Lei M.D. REASON FOR CONSULTATION: Medical management status post right total knee arthroplasty. HISTORY OF PRESENT ILLNESS: Ms. Kunz is an 78 year-old female patient with a longstanding history of rheumatoid arthritis and right knee pain. She had noted that the pain had slowly worsened over the last 4 years. She has had conservative outpatient measures that included injections and physical therapy, but had failed to respond to any treatment measures. Given the worsening of pain and decrease in ability to perform activities of daily living, she requested an elective total knee arthroplasty as a surgical intervention. She was admitted today for elective right total knee arthroplasty. She had no intraoperative complications. She was seen in the immediate postoperative phase in stable condition. PAST MEDICAL HISTORY: 1. Hypertension. 2. Chronic obstructive pulmonary disease. 3. Rheumatoid arthritis. 4. Restless leg syndrome. PAST SURGICAL HISTORY: 1. Shoulder replacement. HOME MEDICATIONS: Awaiting updated list of verified medications in the electronic medical records. ALLERGIES: NO KNOWN DRUG ALLERGIES. FAMILY HISTORY: Noncontributory to current admission. SOCIAL HISTORY: The patient is a previous smoked but quit many years previously. She denies any alcohol or drug usage. She is and lives in [place], [place]. She is cared for by her daughter. REVIEW OF SYSTEMS: CONSTITUTIONAL: Denies any fevers, chills, general malaise, body aches or unintentional weight loss. HEENT: Denies any headaches, vision changes, sore throat or nasal congestion. CHEST: Denies any shortness of breath, wheezing or coughing. CARDIOVASCULAR: Denies any chest pains, palpitations or syncopal episodes. GASTROINTESTINAL: Denies any nausea or vomiting, diarrhea, constipation or abdominal pains. GENITOURINARY: Denies any dysuria, hematuria or polyuria. MUSCULOSKELETAL: As noted in History of Present Illness. NEUROLOGIC: Denies any ataxia, seizure activities or other focal neuromotor deficits. PHYSICAL EXAMINATION: VITAL SIGNS: Temperature 98.1, pulse 79, blood pressure 160/72, respirations 16, satting 97% on room air. Admission weight 78.9 kg. GENERAL: The patient is resting comfortably. Appears to be in no acute distress. She says her pain is well controlled. She is alert. HEENT: Tympanic membranes are clear bilaterally. Oropharynx was pink and moist without any lesions. NECK: Supple, non-tender. Full range of motion. No jugular venous distention. CHEST: Lungs are clear to auscultation, just slightly diminished towards the bases without any notable wheezing, rhonchi or rales. HEART: Regular rate and rhythm without appreciable murmurs, gallops, or rubs. ABDOMEN: Soft, non-tender. Positive bowel sounds. EXTREMITIES: Right knee has an Iceman in place. Pulses distally are strong, capillary refill is brisk. NEUROLOGIC: She is alert and oriented times three. Cranial nerves II-XII are grossly intact. Facial features are symmetrical. Extraocular movements are within normal limits. There is no notable nystagmus. LABORATORY: Urine drug screen was negative. ASSESSMENT: 1. Chronic rheumatoid arthritis with severe degenerative changes in the right knee failing to respond to outpatient treatment measures requiring an elective right total knee arthroplasty with the patient being postoperative day #[address] Hermann Springer. 2. Chronic obstructive pulmonary disease without any signs of exacerbation. 3. Rheumatoid arthritis. 4. Hypertension. 5. Restless leg syndrome. PLAN: Ms. Kunz was admitted for a right total knee arthroplasty elective procedure today. She was seen in the immediate postoperative state in stable condition. Will continue to follow the patient through her postoperative recovery phase and defer further management of orthopedics to Dr. Springer and Physical Therapy. I will review her medications and resume those as soon as possible with appropriate care. Would anticipate her length of stay to be 2 to 3 days with discharge planning in process. Until we can transition to outpatient management will continue to monitor and treat as needed. #[id number] [facility]
[2019-03-13] MEDS ORDERED: ceFAZolin SODIUM 2 GRAMS PREMI 50 ML IVPB ONE ×2 (16:02→19:44)
[2019-03-13] MEDS: ceFAZolin SODIUM 2 GRAMS PREMI 2 GM in PREMIX BAG 1 BAG IVPB SCH (16:28)
[2019-03-13] MEDS: GABAPENTIN 100 MG CAP PO SCH ×2 (16:43→20:10)
[2019-03-13] MEDS: CELECOXIB 100 MG CAP PO SCH (16:43)
[2019-03-13] MEDS: VANCOMYCIN HCL INJ 1,000 MG in SODIUM CHLORIDE 0.9% 250ML 250 ML IVPB SCH (19:00)
[2019-03-13] MEDS: ALBUTEROL INH SCH ×2 (19:41→20:09)
[2019-03-13] MEDS ORDERED: ENOXAPARIN SODIUM 30 MG/0.3 ML SYG SUBCU ONE (19:44)
[2019-03-13] MEDS: OXYBUTYNIN CL 5 MG TAB PO SCH (20:09)
[2019-03-13] MEDS: traMADol HCL 50 MG TAB PO SCH (20:10)
[2019-03-13] MEDS: PANTOPRAZOLE SODIUM TAB 40 MG PO SCH (20:10)
[2019-03-13] MEDS: HYDROXYCHLOROQUINE SULFATE 200 MG PO SCH (20:10)
[2019-03-13] MEDS: FERROUS SULFATE 325 MG TAB PO SCH (20:10)
[2019-03-13] MEDS: MONTELUKAST 10 MG TAB PO SCH (20:10)
[2019-03-13] MEDS: DOCUSATE CALCIUM 240 MG CAP PO SCH (20:10)
[2019-03-13] MEDS: ENOXAPARIN SODIUM 30 MG/0.3 ML SYG SUBCU SCH (22:41)
[2019-03-14] MEDS: ceFAZolin SODIUM 2 GRAMS PREMI 2 GM in PREMIX BAG 1 BAG IVPB SCH ×2 (00:09→07:57)
[2019-03-14] MEDS: VANCOMYCIN HCL INJ 1,000 MG in SODIUM CHLORIDE 0.9% 250ML 250 ML IVPB SCH (06:16)
[2019-03-14] MEDS ORDERED: ceFAZolin SODIUM 2 GRAMS PREMI 50 ML IVPB ONE (07:45)
[2019-03-14] MEDS: hydroCHLOROthiazide 25 MG TAB PO SCH (07:57)
[2019-03-14] MEDS: traMADol HCL 50 MG TAB PO SCH ×2 (07:57→20:39)
[2019-03-14] MEDS: FERROUS SULFATE 325 MG TAB PO SCH ×2 (07:57→20:42)
[2019-03-14] MEDS: CITALOPRAM HBR 20 MG TAB PO SCH (07:59)
[2019-03-14] MEDS: FOLIC ACID 1 MG TAB PO SCH (07:59)
[2019-03-14] MEDS: tiZANidine 4 MG TAB PO SCH ×3 (07:59→20:50)
[2019-03-14] MEDS: CELECOXIB 100 MG CAP PO SCH ×2 (08:00→17:11)
[2019-03-14] MEDS: MAGNESIUM OXIDE 400 MG TAB PO SCH (08:00)
--- NOTE | 2019-03-14 08:01 | OP ---
DATE OF PROCEDURE: 03/13/19 PREOPERATIVE DIAGNOSIS: 1. Osteoarthritis of the right knee. POSTOPERATIVE DIAGNOSIS: 1. Osteoarthritis of the right knee. PROCEDURE: 1. Total knee arthroplasty. SURGEON: Hermann Springer MD. HEAT CURER: Jerzy Gamez CST, SA-C. ANESTHESIA: General anesthesia. COMPLICATIONS: None. FINDINGS: Severe arthritis. INDICATION: Ms. Kunz has a long history of knee pain that has been refractory to conservative measures. Because of the refractory nature of her pain, she has requested operative intervention. After discussing the risks, benefits and alternatives to that, the patient has given informed consent for total knee arthroplasty. PROCEDURE: The patient was brought to the Operating Room and placed in supine position. General anesthesia was induced and the patient's leg was sterilely prepped and draped. Following prepping and draping, the distal femur was exposed and using an intramedullary guide, the distal femoral cut was made. The appropriate sized cutting block was measured, pinned into place, and the anterior, posterior, and chamfer cuts were made. The ACL was transected and the tibia was subluxed. Both the medial and lateral menisci were removed. An intramedullary guide was used to make the proximal tibial cut. The appropriate sized base plate was placed and a trial polyethylene was placed. The trial femur was placed, the knee was reduced, and the knee was taken through a range of motion. The knee was stable in anterior, posterior, varus and valgus stress. The patella tracked anatomically without evidence of subluxation or dislocation. After trialing, the trial components were removed and the bony surfaces were thoroughly irrigated with saline. Following irrigation, the surfaces were dried and the final components were cemented into place. The excess cement was removed and the remaining cement was allowed to cure. The knee was again taken through a range of motion to confirm stability. The wound was then irrigated with saline and closure was performed using PDS to approximate the arthrotomy followed by closure of the subcutaneous tissues with a combination of running and interrupted Monocryl sutures. Sterile dressing was placed. The patient was awoken from anesthesia and taken to Recovery. POSTOPERATIVE PLAN: The patient will be weight-bearing as tolerated on postoperative day 1. COMPONENTS: Vixar Triathlon knee, size 3 femur, size 3 tibia, 9 mm insert. #[id number] [facility]
--- NOTE | 2019-03-14 08:05 | PN ---
DATE: 03/14/19 SUBJECTIVE: Ms. Kunz is doing well. Her pain is mild right now. OBJECTIVE: Afebrile. Vital signs stable. Dressing is clean, dry and intact. ASSESSMENT: Status post total knee arthroplasty. PLAN: The plan at this point is for her to begin weightbearing as tolerated. She will also utilizing CPM with increasing range of motion as tolerated. [facility][id number] [facility]
[2019-03-14] MEDS: OXYBUTYNIN CL 5 MG TAB PO SCH ×2 (08:06→20:37)
--- NOTE | 2019-03-14 09:47 | RAD ---
EXAM DESCRIPTION: Fluoroscopy Up to 1Hr CLINICAL HISTORY: 78 years Female, RIGHT TKA COMPARISON: None. FINDINGS/IMPRESSION: Intraoperative fluoroscopic images saved for the benefit of the surgeon demonstrate changes of right total knee arthroplasty. Please see procedure report for full details. Fluoroscopy time: 2.1 second Dose: 0.17 mGy Fluoroscopic images: One Electronically signed by: Denny Stauffer DO 03/14/2019 9:46 AM CDT
[2019-03-14] MEDS: UMECLIDINIUM VILANTEROL IN SCH (10:02)
[2019-03-14] MEDS: ALBUTEROL INHALER 64 PUFF/8GM INH SCH ×3 (10:12→20:49)
[2019-03-14] MEDS: [UNRECOGNIZED DRUG - OTHER] PO SCH ×2 (11:33→20:36)
[2019-03-14] MEDS: HYDROXYCHLOROQUINE SULFATE 200 MG PO SCH ×2 (11:34→20:36)
[2019-03-14] MEDS: ENOXAPARIN SODIUM 30 MG/0.3 ML SYG SUBCU SCH ×2 (11:36→22:53)
[2019-03-14] MEDS: GABAPENTIN 100 MG CAP PO SCH ×3 (11:36→20:36)
[2019-03-14] MEDS: PANTOPRAZOLE SODIUM TAB 40 MG PO SCH ×2 (11:49→20:37)
--- NOTE | 2019-03-14 13:07 | PN ---
SUPERVISING PHYSICIAN: Gail Lei MD DATE: 03/14/19 SUBJECTIVE: The patient is the bedside chair. She notes she has had good pain control through the night. She has had no nausea or vomiting, no further complaints. OBJECTIVE: VITAL SIGNS: Vital signs remain stable. She is afebrile with temperature 99.1. Blood pressure 107/75. Respirations 18. Saturation 95% on 3 liters nasal cannula at rest. I&Os show a positive balance. Weight 78.9 kg. GENERAL: The patient is resting comfortably in the bedside chair. She is alert. She appears to be in no acute distress. CHEST: Lungs are clear to auscultation. HEART: Regular rate and rhythm. ABDOMEN: Soft, nontender. Positive bowel sounds. EXTREMITIES: The right knee has a bulky dressing in place. Capillary refill brisk. Distal pulses are strong. NEUROLOGIC: Alert and oriented times three. LABORATORY: Postoperative hemoglobin 11.4, hematocrit 34.3. ASSESSMENT: 1. Severe osteoarthritis failing to respond to outpatient treatment measures, worse in the right knee than the left, requiring surgical intervention to include a right total knee arthroplasty performed by Dr. Hermann Springer, orthopedic surgeon, postoperative day #1. 2. Chronic obstructive pulmonary disease without any signs of exacerbation. 3. Rheumatoid arthritis on Plaquenil and Humira. 4. Hypertension, stable. 5. Restless leg syndrome. PLAN: We will continue to follow the patient through her physical therapy and rehabilitation efforts with orthopedic management by Dr. Springer and Physical Therapy. I believe at this point the plan is to have home health physical therapy on discharge. I anticipate discharging later tomorrow or Monday. I resumed her home medications. She is on DVT prophylaxis per protocol. Until the patient can transition to outpatient rehabilitation efforts, we will continue to monitor and treat as needed. [facility][id number] [facility]
[2019-03-14] MEDS: DOCUSATE CALCIUM 240 MG CAP PO SCH (20:37)
[2019-03-14] MEDS: MONTELUKAST 10 MG TAB PO SCH (20:37)
[2019-03-15] MEDS: HYDROcodone 10MG/APAP 325MG 1 EA TAB PO PRN ×2 (05:27→14:59)
[2019-03-15] MEDS: FERROUS SULFATE 325 MG TAB PO SCH ×2 (08:03→20:58)
[2019-03-15] MEDS: CITALOPRAM HBR 20 MG TAB PO SCH (08:03)
[2019-03-15] MEDS: PANTOPRAZOLE SODIUM TAB 40 MG PO SCH ×2 (08:03→20:56)
[2019-03-15] MEDS: FOLIC ACID 1 MG TAB PO SCH (08:03)
[2019-03-15] MEDS: hydroCHLOROthiazide 25 MG TAB PO SCH (08:03)
[2019-03-15] MEDS: traMADol HCL 50 MG TAB PO SCH ×2 (08:03→20:56)
[2019-03-15] MEDS: MAGNESIUM OXIDE 400 MG TAB PO SCH (08:04)
[2019-03-15] MEDS: OXYBUTYNIN CL 5 MG TAB PO SCH ×2 (08:04→20:56)
[2019-03-15] MEDS: GABAPENTIN 100 MG CAP PO SCH ×3 (08:04→20:56)
[2019-03-15] MEDS: tiZANidine 4 MG TAB PO SCH ×3 (08:04→20:58)
[2019-03-15] MEDS: CELECOXIB 100 MG CAP PO SCH ×2 (08:04→16:47)
[2019-03-15] MEDS: HYDROXYCHLOROQUINE SULFATE 200 MG PO SCH ×2 (08:05→20:58)
[2019-03-15] MEDS: [UNRECOGNIZED DRUG - OTHER] PO SCH ×2 (08:05→20:58)
[2019-03-15] MEDS: SODIUM CHLORIDE 0.9% (FLUSH) 10 ML SYG IV SCH ×2 (08:07→20:59)
[2019-03-15] MEDS: ALBUTEROL INHALER 64 PUFF/8GM INH SCH ×4 (08:45→19:48)
[2019-03-15] MEDS: UMECLIDINIUM VILANTEROL IN SCH (08:45)
[2019-03-15] MEDS: ENOXAPARIN SODIUM 30 MG/0.3 ML SYG SUBCU SCH ×2 (11:02→22:55)
--- NOTE | 2019-03-15 13:29 | PN ---
SUPERVISING PHYSICIAN: Gail Lei MD DATE: 03/15/19 SUBJECTIVE: The patient is sitting up in her chair. She is sleeping. She awakens easily. She believes that her physical therapy is going well although it is very slow. She did say that she had a daughter and a granddaughter that would assist her at home on discharge. She denies shortness of breath, chest pain, nausea, vomiting or diarrhea. OBJECTIVE: VITAL SIGNS: Temperature 97.7. Heart rate 65. Blood pressure 122/76. Respiratory rate 18. O2 saturation 97% on 2 liters nasal cannula. RESPIRATORY: Essentially clear to auscultation. CARDIAC: Regular rate and rhythm. GASTROINTESTINAL: Abdomen is soft, nondistended, nontender. Bowel sounds are positive. EXTREMITIES: She has a dressing to her right knee that is dry and intact. Bilateral pedal pulses are palpable at +2. NEUROLOGIC: Awake and alert. LABORATORY: There are no labs or films to report at this time. ASSESSMENT: 1. Severe osteoarthritis failing to respond to outpatient treatment measures, worse in the right knee than the left, requiring surgical intervention to include a right total knee arthroplasty performed by Dr. Hermann Springer, orthopedic surgeon, postoperative day #2. 2. Chronic obstructive pulmonary disease without any signs of exacerbation. 3. Rheumatoid arthritis on Plaquenil and Humira. 4. Hypertension, stable. 5. Restless leg syndrome. PLAN: We will continue present supportive care. Orthopedic issues will be per Dr. Hermann Springer, orthopedic surgeon. She will continue with physical therapy for strengthening and conditioning. I discussed her treatment plan with Physical Therapy and although she is progressing slowly, we will evaluate her daily to see if the patient can go home safely or will need to be discharged from the Acute Care setting and readmitted to Swing Bed. At this point, she does have home health which will assist her as well as she said that her daughter and granddaughter will come stay with her. We will followup with those after we evaluate her daily on a clinical basis. We will continue to monitor the patient closely and follow as needed. [facility][id number] [facility]
[2019-03-15] MEDS: MONTELUKAST 10 MG TAB PO SCH (20:56)
[2019-03-15] MEDS: DOCUSATE CALCIUM 240 MG CAP PO SCH (20:56)
[2019-03-16] MEDS: CELECOXIB 100 MG CAP PO SCH ×2 (08:10→17:56)
[2019-03-16] MEDS: [UNRECOGNIZED DRUG - OTHER] PO SCH ×2 (08:21→20:35)
[2019-03-16] MEDS: FOLIC ACID 1 MG TAB PO SCH (08:22)
[2019-03-16] MEDS: MAGNESIUM OXIDE 400 MG TAB PO SCH (08:22)
[2019-03-16] MEDS: FERROUS SULFATE 325 MG TAB PO SCH ×2 (08:22→20:34)
[2019-03-16] MEDS: hydroCHLOROthiazide 25 MG TAB PO SCH (08:22)
[2019-03-16] MEDS: CITALOPRAM HBR 20 MG TAB PO SCH (08:22)
[2019-03-16] MEDS: PANTOPRAZOLE SODIUM TAB 40 MG PO SCH ×2 (08:23→20:34)
[2019-03-16] MEDS: tiZANidine 4 MG TAB PO SCH ×3 (08:23→20:34)
[2019-03-16] MEDS: OXYBUTYNIN CL 5 MG TAB PO SCH ×2 (08:23→20:34)
[2019-03-16] MEDS: GABAPENTIN 100 MG CAP PO SCH ×3 (08:23→20:34)
[2019-03-16] MEDS: traMADol HCL 50 MG TAB PO SCH ×2 (08:23→20:33)
[2019-03-16] MEDS: HYDROXYCHLOROQUINE SULFATE 200 MG PO SCH ×2 (08:25→20:35)
[2019-03-16] MEDS: SODIUM CHLORIDE 0.9% (FLUSH) 10 ML SYG IV SCH ×2 (08:25→20:36)
[2019-03-16] MEDS: ALBUTEROL INHALER 64 PUFF/8GM INH SCH ×4 (08:29→20:45)
[2019-03-16] MEDS: UMECLIDINIUM VILANTEROL IN SCH (08:29)
[2019-03-16] MEDS: ENOXAPARIN SODIUM 30 MG/0.3 ML SYG SUBCU SCH ×2 (12:07→22:44)
[2019-03-16] MEDS: IV SET AND CAP CHANGE INJ INJ SCH (12:08)
[2019-03-16] MEDS: HYDROcodone 10MG/APAP 325MG 1 EA TAB PO PRN (12:33)
--- NOTE | 2019-03-16 15:23 | PN ---
DATE: 03/16/19 SUPERVISING PHYSICIAN: Vinayak Lei M.D. SUBJECTIVE: The patient is lying in bed. She is asleep. She awakens easily. She does have some complaints of some mild weakness but feels like her physical therapy is going better. Denies any uncontrolled pain, nausea, vomiting, chest pain or shortness of breath. OBJECTIVE: VITAL SIGNS: Temperature 97.4, heart rate 58, blood pressure 95/60, respiratory rate 16, O2 sat 95% on 2 liters nasal cannula. RESPIRATORY: Essentially clear to auscultation bilaterally. CARDIAC: Regular rate and rhythm. At times she is very slightly bradycardic. GASTROINTESTINAL: Abdomen is soft, nondistended, non-tender. Bowel sounds are positive. EXTREMITIES: She has a dressing to her right knee that is dry and intact. Bilateral pedal pulses are palpable at +2. NEUROLOGIC: She is awake and alert. LABORATORY: There are no labs or films to report at this time. ASSESSMENT: 1. Severe osteoarthritis failing to respond to outpatient treatment measures, worse in the right knee than the left, requiring surgical intervention to include a right total knee arthroplasty performed by Dr. Hermann Springer, orthopedic surgeon, postoperative day #3. 2. Chronic obstructive pulmonary disease without any signs of exacerbation. 3. Rheumatoid arthritis on Plaquenil and Humira. 4. Hypertension, stable. 5. Restless leg syndrome. PLAN: We will continue present supportive care. She will continue with her physical therapy for strengthening and conditioning. Orthopedic issues will be per Dr. Hermann Springer. Physical Therapy recommended that if the patient does not improve with her physical therapy by tomorrow that she may need a referral to [facility] in [place]. I will need to speak with her family as well as to [facility] for an evaluation. Will try to get that done tomorrow, but we will also see how she does with her physical therapy tomorrow. She does live alone and that may be an issue, although her family did say that they would help at her home after discharge. I will get an update from Physical Therapy tomorrow and will follow as needed. [facility][id number] [facility]
[2019-03-16] MEDS: traMADol HCL 50 MG TAB PO PRN (17:56)
[2019-03-16] MEDS: DOCUSATE CALCIUM 240 MG CAP PO SCH (20:34)
[2019-03-16] MEDS: MONTELUKAST 10 MG TAB PO SCH (20:34)
[2019-03-16] MEDS ORDERED: BISACODYL SUPPOSITORY 10 MG PR ONE (21:00)
[2019-03-16] MEDS ORDERED: MAGNESIUM HYDROXIDE 30 ML UD PO ONE (21:00)
[2019-03-17] MEDS: HYDROcodone 10MG/APAP 325MG 1 EA TAB PO PRN ×2 (01:40→18:55)
[2019-03-17] MEDS: UMECLIDINIUM VILANTEROL IN SCH (07:36)
[2019-03-17] MEDS: ALBUTEROL INHALER 64 PUFF/8GM INH SCH ×4 (07:37→20:50)
[2019-03-17] MEDS: CELECOXIB 100 MG CAP PO SCH ×2 (07:49→16:59)
[2019-03-17] MEDS: [UNRECOGNIZED DRUG - OTHER] PO SCH ×2 (10:02→21:00)
[2019-03-17] MEDS: hydroCHLOROthiazide 25 MG TAB PO SCH (10:02)
[2019-03-17] MEDS: CITALOPRAM HBR 20 MG TAB PO SCH (10:02)
[2019-03-17] MEDS: OXYBUTYNIN CL 5 MG TAB PO SCH ×2 (10:02→20:58)
[2019-03-17] MEDS: FERROUS SULFATE 325 MG TAB PO SCH ×2 (10:03→20:57)
[2019-03-17] MEDS: GABAPENTIN 100 MG CAP PO SCH ×3 (10:03→20:55)
[2019-03-17] MEDS: MAGNESIUM OXIDE 400 MG TAB PO SCH (10:03)
[2019-03-17] MEDS: ENOXAPARIN SODIUM 30 MG/0.3 ML SYG SUBCU SCH ×2 (10:03→22:10)
[2019-03-17] MEDS: tiZANidine 4 MG TAB PO SCH ×3 (10:03→20:57)
[2019-03-17] MEDS: traMADol HCL 50 MG TAB PO SCH ×2 (10:03→20:55)
[2019-03-17] MEDS: PANTOPRAZOLE SODIUM TAB 40 MG PO SCH ×2 (10:03→20:57)
[2019-03-17] MEDS: FOLIC ACID 1 MG TAB PO SCH (10:03)
[2019-03-17] MEDS: SODIUM CHLORIDE 0.9% (FLUSH) 10 ML SYG IV SCH ×2 (10:04→21:00)
[2019-03-17] MEDS: HYDROXYCHLOROQUINE SULFATE 200 MG PO SCH ×2 (10:04→20:59)
--- NOTE | 2019-03-17 14:22 | PN ---
DATE: 03/17/19 SUPERVISING PHYSICIAN: Vinayak Lei M.D. SUBJECTIVE: The patient is lying in bed. She has no complaints of nausea, vomiting, diarrhea, constipation, shortness of breath or chest pain. We discussed her discharge options and she does not want to go to [facility] in [place]. She said her daughter and granddaughter as well as a sister and another granddaughter will be available at her house to assist with her care after discharge. OBJECTIVE: VITAL SIGNS: Temperature 98.2, heart rate 82, blood pressure 99/62, respiratory rate 18, O2 sat 95% on 2 liters nasal cannula. RESPIRATORY: Essentially clear to auscultation bilaterally. CARDIAC: Regular rate and rhythm. GASTROINTESTINAL: Abdomen is soft, nondistended, non-tender. Bowel sounds are positive. NEUROLOGIC: She is awake and alert. EXTREMITIES: She has a dressing to her right knee that is dry and intact. At this time she is on the CPM machine. LABORATORY: There are no labs or films to report at this time. ASSESSMENT: 1. Severe osteoarthritis failing to respond to outpatient treatment measures, worse in the right knee than the left, requiring surgical intervention to include a right total knee arthroplasty performed by Dr. Hermann Springer, orthopedic surgeon, postoperative day #4. 2. Chronic obstructive pulmonary disease without any signs of exacerbation. 3. Rheumatoid arthritis on Plaquenil and Humira. 4. Hypertension, stable. 5. Restless leg syndrome. PLAN: We will continue present supportive care. I will let Physical Therapy evaluate her tomorrow and have [employer] help with her discharge. She would like to go home and she does have family that is available. Hopefully she will be safe to go home after Physical Therapy does their evaluation. She will followup with Dr. Springer as previously ordered. Will continue to monitor closely and follow as needed. [facility][id number] [facility]
[2019-03-17] MEDS ORDERED: ONDANSETRON 4 MG TAB ONE (20:52)
[2019-03-17] MEDS ORDERED: ONDANSETRON 4 MG TAB PO PRN (20:54)
[2019-03-17] MEDS: DOCUSATE CALCIUM 240 MG CAP PO SCH (20:57)
[2019-03-17] MEDS: MONTELUKAST 10 MG TAB PO SCH (20:57)
--- NOTE | 2019-03-18 07:56 | PN ---
DATE: 03/16/19 SUBJECTIVE: She is doing pretty well. She has minimal pain. OBJECTIVE: Afebrile. Vital signs stable. Wound is clean. There are no signs or symptoms of infection. ASSESSMENT: Status post total knee arthroplasty. PLAN: The plan is to continue with her weightbearing status as tolerated. #[id number] [facility]
--- NOTE | 2019-03-18 07:58 | PN ---
DATE: 03/18/19 SUBJECTIVE: Ms. Kunz is doing well and has been up walking. OBJECTIVE: Afebrile. Vital signs stable. Wound is clean. There are no signs or symptoms of infection. ASSESSMENT: Status post total knee arthroplasty. PLAN: We are going to see how she does today with physical therapy. We may be sending her home later this afternoon. #[id number] [facility]
[2019-03-18] MEDS: CELECOXIB 100 MG CAP PO SCH (08:16)
[2019-03-18] MEDS: UMECLIDINIUM VILANTEROL IN SCH (08:25)
[2019-03-18] MEDS: ALBUTEROL INHALER 64 PUFF/8GM INH SCH ×2 (08:25→12:48)
[2019-03-18] MEDS: HYDROXYCHLOROQUINE SULFATE 200 MG PO SCH (08:59)
[2019-03-18] MEDS: [UNRECOGNIZED DRUG - OTHER] PO SCH (08:59)
[2019-03-18] MEDS: ENOXAPARIN SODIUM 30 MG/0.3 ML SYG SUBCU SCH (08:59)
[2019-03-18] MEDS: FOLIC ACID 1 MG TAB PO SCH (09:00)
[2019-03-18] MEDS: FERROUS SULFATE 325 MG TAB PO SCH (09:00)
[2019-03-18] MEDS: GABAPENTIN 100 MG CAP PO SCH (09:00)
[2019-03-18] MEDS: hydroCHLOROthiazide 25 MG TAB PO SCH (09:00)
[2019-03-18] MEDS: tiZANidine 4 MG TAB PO SCH (09:00)
[2019-03-18] MEDS: OXYBUTYNIN CL 5 MG TAB PO SCH (09:00)
[2019-03-18] MEDS: traMADol HCL 50 MG TAB PO SCH (09:01)
[2019-03-18] MEDS: CITALOPRAM HBR 20 MG TAB PO SCH (09:01)
[2019-03-18] MEDS: PANTOPRAZOLE SODIUM TAB 40 MG PO SCH (09:01)
[2019-03-18] MEDS: MAGNESIUM OXIDE 400 MG TAB PO SCH (09:02)
[2019-03-18] MEDS: SODIUM CHLORIDE 0.9% (FLUSH) 10 ML SYG IV SCH (09:03)
[2019-03-18] MEDS: traMADol HCL 50 MG TAB PO PRN (12:36)
[2019-03-18 14:39] VITALS: BP 110/68; TEMP 97.9; O2SAT 93
--- NOTE | 2019-03-25 14:31 | DS ---
SUPERVISING PHYSICIAN: Yaron Wiley MD ADMISSION DIAGNOSIS: 1. Chronic rheumatoid arthritis with severe degenerative changes in the right knee failing to respond to outpatient treatment measures requiring an elective right total knee arthroplasty with the patient being postoperative day #[address] Hermann Springer. 2. Chronic obstructive pulmonary disease without any signs of exacerbation. 3. Rheumatoid arthritis. 4. Hypertension. 5. Restless leg syndrome. DISCHARGE DIAGNOSIS: 1. Severe osteoarthritis failing to respond to outpatient treatment measures, worse in the right knee than the left, requiring surgical intervention to include a right total knee arthroplasty performed by Dr. Hermann Springer, orthopedic surgeon, postoperative day #5. 2. Chronic obstructive pulmonary disease without any signs of exacerbation. 3. Rheumatoid arthritis on Plaquenil and Humira. 4. Hypertension, stable. 5. Restless leg syndrome. HISTORY OF PRESENT ILLNESS: Ms. Kunz is an 78 year-old female patient with a longstanding history of rheumatoid arthritis and right knee pain. She had noted that the pain had slowly worsened over the last 4 years. She has had conservative outpatient measures that included injections and physical therapy, but had failed to respond to any treatment measures. Given the worsening of pain and decrease in ability to perform activities of daily living, she requested an elective total knee arthroplasty as a surgical intervention. She was admitted today for elective right total knee arthroplasty. She had no intraoperative complications. She was seen in the immediate postoperative phase in stable condition. LABORATORY: Postoperative hemoglobin 11.4, hematocrit 34.3. HOSPITAL COURSE: Ms. Kunz was admitted on 03/13/19 for elective right total knee arthroplasty. She had no complications intraoperatively. She was followed postoperatively. She did progress slowly in her efforts in physical therapy, but on the day of discharge on 03/18/19, it was felt that the patient had shown improvement and was stable enough to discharge home to continue with outpatient management. PROCEDURES: See operative note per Dr. Springer. CONSULTATION: Hospitalist services. Please see my medical consultation note done on 03/13/19. PLAN: Ms. Kunz was discharged on 03/18/[address] Springer on 04/01/19 at 10 AM. She was to resume her home medications as previous to hospitalization. She was told to return to the hospital or Dr. Springer if she had an concerning symptoms. Diet on discharge was regular diet as tolerated. Activities per physical therapy. [facility]. MEDICATIONS AT DISCHARGE: 1. Pain management with [place] 5/325, 1 q.4h. as needed, #50. Prescription written by Dr. Springer. 2. Xarelto 10 mg daily, #6, no refills. All other medications prior to hospital were continued. DISPOSITION: The patient is discharged home. CONDITION ON DISCHARGE: Stable and improved. #[id number] [facility]
== END 2019-03-18 12:40 | disposition home health service (06) | DRG 470 ==
LOC: AMB 05:37 → MS 11:30
PROVIDERS: ADMIT Orthopaedic Surgery; ATTEND Orthopaedic Surgery
PROC: 0SRC0J9 Replacement of Right Knee Joint with Synthetic Substitute, Cemented, Open Approach (ICD-10-PCS; principal; 2019-03-13 07:00)
DX: M17.11 Unilateral primary osteoarthritis, right knee (principal); J44.9 Chronic obstructive pulmonary disease, unspecified; I10 Essential (primary) hypertension; G25.81 Restless legs syndrome; M06.9 Rheumatoid arthritis, unspecified; Z87.891 Personal history of nicotine dependence; Z96.619 Presence of unspecified artificial shoulder joint; Z79.891 Long term (current) use of opiate analgesic; Z79.83 Long term (current) use of bisphosphonates

== ENCOUNTER → 2019-04-02 | Outpatient (CLI) | payer MEDICARE ==
--- NOTE | 2019-04-03 08:40 | CT ---
EXAM DESCRIPTION: Abdomen/Pelvis w/wo Contrast: Computed Tomography. CLINICAL HISTORY: ABNORMAL WEIGHT LOSS COMPARISON: Abdominal and pelvic CT scan 2017. TECHNIQUE: Spiral-axial scans at 5.0 mm intervals through the abdomen and pelvis before and after 75 mL Optiray 320 nonionic IV contrast. No oral contrast. Coronal and sagittal 2.0 mm reconstructions. 5 mm Delayed helical-axial scans, liver through the pubic symphysis. No adverse reactions. Total Exam DLP 2773.3 mGy - cm. This exam was performed according to our departmental CT dose-optimization program which includes automated exposure control, adjustment of the mA and/or kV according to patient size and/or use of iterative reconstruction technique; to reduce radiation dose to as low as reasonably achievable (ALARA). FINDINGS: Lung bases and pleura: Pleural parenchymal scarring in the right lower lobe. Liver, Stomach, Spleen, Adrenal Glands: Small to moderate size gastric hiatal hernia is stable. Solid organs are unremarkable. Pancreas, Gallbladder, Ducts: Surgical clips in the gallbladder fossa. No fluid. Minimal duct dilation unchanged. Small pancreas with partial visualization of the pancreatic duct, otherwise unremarkable. Kidneys and Ureters: Negative. Mesentery: No free air or free fluid. No inflammatory changes or nodes. Aorta: Moderate atherosclerotic calcification mid and distal with narrowing of the lumen and calcifications continuing into the bilateral common iliac arteries. Small Bowel: Mostly fluid throughout with normal caliber. Terminal Ileum/Cecum: Normal caliber. Appendix not seen. Colon: Ascending colon and transverse colon are minimally redundant. Moderate amount of fecal burden from the mid transverse colon to the rectum. No air-fluid levels.. Pelvic Organs: Prior hysterectomy. Otherwise negative. Spine and Bony Pelvis: Spondylosis lumbar spine with levoscoliosis. Bilateral hip arthrosis also involving pubic symphysis. Again noted is a lumbarized transitional S1 segment. Central compression of the T11 vertebral body since the prior study and posterior elements appear grossly intact. No abnormal activity in this vertebral body on bone scan in December 2018. Abdominal Wall/Back Soft Tissues: Diastases of the umbilicus not containing bowel. Small left inguinal hernia not containing bowel. IMPRESSION: 1. No free air or free fluid in the peritoneum. No peritoneal or retroperitoneal mass. No inflammatory changes. 2. Abdominal and pelvic organs appear stable since the prior study. 3. Central compression type fracture T11 vertebral body since the prior CT scan. No abnormal activity in this vertebra on the bone scan December 2018. Age unknown. 4. Moderate constipation from the mid transverse colon to the rectum which has progressed since the prior study. Electronically signed by: Jerzy Jimenez MD 04/03/2019 8:39 AM [facility]
== END | disposition home or self-care (01) ==
LOC: CT 07:38
PROVIDERS: ATTEND Family Medicine
DX: R63.4 Abnormal weight loss (principal)

== ENCOUNTER → 2019-11-26 | Outpatient (CLI) | payer MEDICARE | LOC: BFHH 11:35 | PROVIDERS: ATTEND Family Medicine | DX: E11.9 Type 2 diabetes mellitus without complications (principal); J44.9 Chronic obstructive pulmonary disease, unspecified; E03.9 Hypothyroidism, unspecified; I11.9 Hypertensive heart disease without heart failure ==

== ENCOUNTER → 2020-01-07 | Outpatient (CLI) | payer MEDICARE | END | disposition home or self-care (01) | LOC: BFHH 12:40 | PROVIDERS: ATTEND Family Medicine | DX: J44.9 Chronic obstructive pulmonary disease, unspecified (principal); I11.9 Hypertensive heart disease without heart failure; M17.12 Unilateral primary osteoarthritis, left knee; M62.81 Muscle weakness (generalized); M35.3 Polymyalgia rheumatica; D64.9 Anemia, unspecified ==

== ENCOUNTER 2020-02-11 20:45 | Emergency (ER) | payer MEDICARE, MEDICAID ==
[2020-02-11] MEDS ORDERED: MORPHINE SULFATE INJ 10 MG/ML VIAL IM ONE ×2 (21:03→21:31)
--- NOTE | 2020-02-11 21:06 | ED.PDOC ---
History of Present Illness - General Chief Complaint: Lower Extremity Injury Stated Complaint: left knee pain Time Seen by Provider: 02/11/20 20:46 Source: patient, RN notes reviewed, Vital Signs reviewed, family Exam Limitations: no limitations - History of Present Illness Initial Comments: 79 yo F with hx of RA and OA was walking up and down her ramp yesterday for exercise when he left knee felt like it gave out on her. Had pain, walking back to the house brought her to tears. no direct trauma. since then has been having pain with walking. no numbness or tingling. no back pain. pain worse when she trys to extend her knee. Occurred: yesterday Pain - Lower Extremity: moderate: Left Knee Method of Injury: unknown Improving Factors: movement Worsening Factors: immobilization, medication Allergies/Adverse Reactions: Allergies NO KNOWN ALLERGY Allergy (Verified 03/13/19 12:15) Home Medications: Ambulatory Orders Citalopram Hydrobromide 10 mg PO DAILY 09/25/14 Hydrochlorothiazide 12.5 mg PO DAILY 09/25/14 Montelukast Sodium 10 mg PO BEDTIME 09/25/14 Oxybutynin Chloride 10 mg PO BID 05/11/16 Pantoprazole Sodium 40 mg PO BID 05/11/16 Tramadol HCl 50 mg PO BID 05/11/16 diphenhydrAMINE HCL [Benadryl] 25 mg PO BEDTIME 07/25/17 Albuterol Inhaler [Ventolin Hfa Inhaler] 1 puff INH QID 02/22/19 Alendronate Sodium [Fosamax] 70 mg PO WKLY 02/22/19 Cannabinoids [Full Spectrum Extract 10 mg/ml] 0.5 liq PO BID 02/22/19 Folic Acid 1 mg PO DAILY 02/22/19 Hydrocodone Polistirex-Chlorph [Hydrocodone Polistirex/Ch 10-8 mg/5Ml] 1 edwina PO PRN PRN 02/22/19 Ropinirole Hydrochloride 0.5 mg PO BEDTIME 02/22/19 tiZANidine [Zanaflex] 4 mg PO TID 02/22/19 HYDROcodone 5MG/APAP 325MG [[place] 5/325] 1 tab PO .Q4H #50 tab 03/18/19 Abatacept [Orencia Clickject] 125 mg SC WKLY 09/29/20 Pramipexole Dihydrochloride [Pramipexole Dihydrochlori] 0.5 mg PO DAILY 02/11/20 Umeclidinium-Vilanterol [Anoro Ellipta 62.5-25 Mcg/INH] 1 aer IN DAILY 02/11/20 Review of Systems - Review of Systems Constitutional: Denies: chills, fever EENTM: Denies: blurred vision, throat swelling, mouth swelling Respiratory: Denies: cough, short of breath Cardiology: Denies: chest pain, palpitations Gastrointestinal/Abdominal: Denies: abdominal pain, nausea, vomiting Genitourinary: Denies: discharge, frequency Musculoskeletal: States: joint pain. Denies: joint swelling, muscle pain, musc le stiffness Skin: Denies: change in hair/nails Neurological: Denies: headache, numbness, paresthesia, tingling, tremors Endocrine: Denies: unexplained weight gain, unexplained weight loss Hematologic/Lymphatic: Denies: easy bleeding, easy bruising Past Medical History (General) - Patient Medical History Hx Seizures: No Hx Stroke: No Hx Asthma: No Hx of COPD: Yes Hx Congestive Heart Failure: No Hx Pacemaker: No Hx Hypertension: Yes Hx Thyroid Disease: No Hx Diabetes: No Hx Gastroesophageal Reflux: Yes Hx Cancer: Yes - tongue Hx Hepatitis C: No Hx MRSA: No - Vaccination History Hx Tetanus, Diphtheria Vaccination: No Hx Influenza Vaccination: Yes - 2017 Hx Pneumococcal Vaccination: Yes - 2016 - Social History Hx Tobacco Use: Yes - Quit approx 40 yrs ago Hx Alcohol Use: No Hx Substance Use: No Hx Substance Use Treatment: No Hx Depression: No Hx Physical Abuse: No Hx Emotional Abuse: No Family Medical History - Family History Mother Family History: No Known Hx Family Cancer: Yes - liver,lung,prostate Physical Exam - Physical Exam General Appearance: Alert, Comfortable, No apparent distress, Well Developed, Well Groomed, Well Hydrated, Well Nourished Eyes, Ears, Nose, Throat: normal ENT inspection Neck: non-tender, full range of motion, supple Cardiovascular/Respiratory: regular rate, rhythm, no M/R/G, normal peripheral pulses, no JVD, normal breath sounds, no respiratory distress Gastrointestinal/Abdominal: non-tender, other - soft Back: normal inspection Thigh/Hip: normal inspection Leg: normal inspection Knee: normal inspection, no evidence of injury, pain, other - pain worse with leg extension. no joint instability, distal pulse and sensation intact. 5/5 deepika. Ankle: normal inspection Foot: normal inspection Neuro/Tendon: normal sensation, normal motor functions, normal tendon functions Mental Status: alert, oriented x 3 Skin: normal color, warm/dry Progress - Progress Progress: 02/11/20 21:25 partial ddx: internal knee tendon/meniscus injury, osteoporosis stress fracture, OA/RA patient was given 2 mg morphine IM for pain. xray showed no fracture. patient still in pain. given 8 mg of dexamethasone and 1 norco for pain. will give knee immobilizer to help for pain. Has an appointment with sports medicine doctor tomorrow at 130 PM. recommend keep this appointment, may benefit from steroid injection, will likely need MRI knee. The data reviewed when caring for this patient included: nurse notes, prior records, etc. The history and assessments from nurses notes were reviewed and considered, and the patient's home medication list was also reviewed and considered. My assessment and the results of testing completed here in the ED were discussed with the patient/family. All questions were answered, and they express understanding of my assessment and the plan. They have been instructed to return if their symptoms worsen, and have been asked to follow up with their primary care physician to recheck today's presenting complaint. Strict return precautions given. I have reviewed medication, benefits, alternatives and side effects. Patient decided to proceed with medication.Jessica Kolb DO #[id number] 02/11/20 22:52 - EKG/XRAY/CT XRAY: knee - significant OA, with spurring, no acute fracture noted. Departure - Departure Clinical Impression: Osteoarthritis Qualifiers: Osteoarthritis location: knee Osteoarthritis type: primary Laterality: left Qualified Code(s): M17.12 - Unilateral primary osteoarthritis, left knee Knee pain, left Qualifiers: Chronicity: acute Qualified Code(s): M25.562 - Pain in left knee Time of Disposition: 22:40 Disposition: Discharge to Home or Self Care Condition: Fair Departure Forms: ED Discharge - Pt. Copy, Patient Portal Self Enrollment Instructions: DI for Leg Pain, Internal Derangement of the Knee (DC), Knee Pain, Osteoarthritis, Preventing Falls Referrals: Last Orantes MD [Primary Care Provider] - 1-5 Days Home Medications: Ambulatory Orders Citalopram Hydrobromide 10 mg PO DAILY 09/25/14 Hydrochlorothiazide 12.5 mg PO DAILY 09/25/14 Montelukast Sodium 10 mg PO BEDTIME 09/25/14 Oxybutynin Chloride 10 mg PO BID 05/11/16 Pantoprazole Sodium 40 mg PO BID 05/11/16 Tramadol HCl 50 mg PO BID 05/11/16 diphenhydrAMINE HCL [Benadryl] 25 mg PO BEDTIME 07/25/17 Albuterol Inhaler [Ventolin Hfa Inhaler] 1 puff INH QID 02/22/19 Alendronate Sodium [Fosamax] 70 mg PO WKLY 02/22/19 Cannabinoids [Full Spectrum Extract 10 mg/ml] 0.5 liq PO BID 02/22/19 Folic Acid 1 mg PO DAILY 02/22/19 Hydrocodone Polistirex-Chlorph [Hydrocodone Polistirex/Ch 10-8 mg/5Ml] 1 edwina PO PRN PRN 02/22/19 Ropinirole Hydrochloride 0.5 mg PO BEDTIME 02/22/19 tiZANidine [Zanaflex] 4 mg PO TID 02/22/19 HYDROcodone 5MG/APAP 325MG [[place] 5/325] 1 tab PO .Q4H #50 tab 03/18/19 Abatacept [Orencia Clickject] 125 mg SC WKLY 02/11/20 Pramipexole Dihydrochloride [Pramipexole Dihydrochlori] 0.5 mg PO DAILY 02/11/20 Umeclidinium-Vilanterol [Anoro Ellipta 62.5-25 Mcg/INH] 1 aer IN DAILY 02/11/20 Additional Instructions: keep your scheduled appointment with your sports medicine doctor tomorrow at 130.
[2020-02-11] MEDS ORDERED: DEXAMETHASONE 4 MG TAB PO ONE (21:35)
--- NOTE | 2020-02-11 21:35 | RAD ---
EXAM DESCRIPTION: LEFT KNEE, COMPLETE, X-RAYS, 3 VIEWS CLINICAL HISTORY: knee pain COMPARISON: None FINDINGS: AP, lateral and sunrise views of the left knee were submitted. There is no acute fracture or dislocation. Advanced tricompartmental osteoarthrosis Bone mineralization is within normal limits. There is no suprapatellar joint fluid collection. IMPRESSION: 1. No fracture or traumatic malalignment. 2. Advanced tricompartmental osteoarthrosis. Electronically signed by: Georges Thompson MD 02/11/2020 9:34 PM CDT
[2020-02-11] MEDS ORDERED: HYDROCOD/APAP 5/325 (ER DISP) #3 TAB PO ONE (22:07)
[2020-02-11] MEDS ORDERED: PHYTONADIONE INJ 10 MG in SODIUM CHLORIDE 0.9% 50ML 50 ML IVPB ONE (22:18)
[2020-02-12 00:11] VITALS: BP 135/79; TEMP 97.6; O2SAT 97
== END 2020-02-11 23:40 | disposition home or self-care (01) ==
LOC: ER 20:45
DX: M17.12 Unilateral primary osteoarthritis, left knee (principal); M06.9 Rheumatoid arthritis, unspecified; K21.9 Gastro-esophageal reflux disease without esophagitis; I10 Essential (primary) hypertension; J44.9 Chronic obstructive pulmonary disease, unspecified; Z87.891 Personal history of nicotine dependence; Z85.810 Personal history of malignant neoplasm of tongue; Z79.899 Other long term (current) drug therapy
CPT/HCPCS: 73562; J2270; J8540

== ENCOUNTER → 2020-03-04 | Outpatient (CLI) | payer MEDICARE, MEDICAID | LOC: GMAM 16:42 | PROVIDERS: ATTEND Family Medicine | DX: M06.9 Rheumatoid arthritis, unspecified (principal) ==

== ENCOUNTER → 2020-03-05 | Outpatient (CLI) | payer MEDICARE, MEDICAID ==
--- NOTE | 2020-03-05 14:01 | US ---
EXAM DESCRIPTION: Venous,Lower Extremity LT: ULTRASOUND. CLINICAL HISTORY: CELLULITIS OF LOWER LEFT LIMB COMPARISON: None Available. TECHNIQUE: Colin-scale and doppler sonographic evaluation of the deep venous system of the left lower extremity. FINDINGS: Doppler evaluation shows normal color flow and normal phasicity and augmentation of the left common femoral vein, left femoral vein, popliteal vein, left greater saphenous vein, junction with the CFV. Also normal color flow and normal phasicity and augmentation of the left peroneal and posterior tibial vein. The left lower extremity deep veins were completely compressible; normal occlusion with transducer pressure. Colin-scale survey showed no echogenic thrombus within these veins. Irregular fluid collection with septations in the left popliteal fossa measuring 5.8 x 2.6 x 2.4 cm with no color Doppler signature. IMPRESSION: 1. Duplex ultrasound evaluation of the left lower extremity deep venous system showing no evidence of thrombosis. 2. 5.8 cm irregular Canseco's cyst in the left popliteal fossa. Electronically signed by: Jerzy Jimenez MD 03/05/2020 2:00 PM CDT
== END ==
LOC: US 08:43
PROVIDERS: ATTEND Family Medicine
DX: M71.22 Synovial cyst of popliteal space [Baker], left knee (principal); L03.116 Cellulitis of left lower limb

== ENCOUNTER → 2020-03-16 | Outpatient (CLI) | payer MEDICARE, MEDICAID | LOC: BFHH 13:06 | PROVIDERS: ATTEND Family Medicine | DX: M17.12 Unilateral primary osteoarthritis, left knee (principal); J44.9 Chronic obstructive pulmonary disease, unspecified; M06.9 Rheumatoid arthritis, unspecified; I10 Essential (primary) hypertension; K21.9 Gastro-esophageal reflux disease without esophagitis; E55.9 Vitamin D deficiency, unspecified; E53.8 Deficiency of other specified B group vitamins; R32 Unspecified urinary incontinence; D50.8 Other iron deficiency anemias ==

== ENCOUNTER → 2020-06-25 | Outpatient (CLI) | payer MEDICARE, MEDICAID | LOC: GMAM 17:29 | PROVIDERS: ATTEND Family Medicine | DX: R04.0 Epistaxis (principal); R51.9 Headache, unspecified; R04.2 Hemoptysis ==

== ENCOUNTER → 2020-07-07 | Outpatient (CLI) | payer MEDICARE, MEDICAID ==
--- NOTE | 2020-07-07 18:06 | CT ---
EXAM DESCRIPTION: Chest w/Contrast CLINICAL HISTORY: 80 years, Female, hemoptysis COMPARISON: Chest x-ray July 25, 2017, CT of the chest with contrast July 02, 2015 TECHNIQUE: Thin-section noncontrast axial CT images are obtained according to our protocol. Reconstructed MPR images are created and reviewed as well. FINDINGS: Lungs: No consolidating pulmonary infiltrate or groundglass infiltrate. Extensive emphysematous changes throughout the lungs. No worrisome pulmonary mass or nodule. Mediastinum: Lymph nodes are normal in size. Prominent esophagus without wall thickening. Trachea and bronchi appear clear. Normal vascular contours. Heart size is normal with no pericardial effusion. Mild coronary calcification. Moderate hiatal hernia in the lower chest. Chest wall/axilla: No mass or adenopathy. Dense breast tissue appears symmetrical. Metal artifacts from orthopedic hardware in the proximal right humerus. Lower neck/supraclavicular: No mass or adenopathy. Old vertebral compressions in the upper T-spine. Upper abdomen: Liver surface is irregular consistent with scarring or cirrhosis. The gallbladder is surgically absent. Small to moderate hiatal hernia in the lower chest. Otherwise unremarkable upper abdominal viscera. Coronal and sagittal reformatted images confirm the findings. IMPRESSION: No acute process in the chest. Extensive pulmonary emphysema. Irregular liver surface consistent with scarring or cirrhosis. This exam was performed according to our departmental dose-optimization program, which includes automated exposure control, adjustment of the mA and/or kV according to patient size and/or use of iterative reconstruction technique. Total DLP equals 713.37 mGycm. Electronically signed by: Munir Martinez MD 07/07/2020 6:05 PM [facility]
== END ==
LOC: ECHO 09:40
PROVIDERS: ATTEND Family Medicine
DX: R00.2 Palpitations (principal); R04.2 Hemoptysis; J44.1 Chronic obstructive pulmonary disease with (acute) exacerbation; I51.7 Cardiomegaly; I51.9 Heart disease, unspecified; I34.8 Other nonrheumatic mitral valve disorders